=== PATIENT | female | born 1970 | race Caucasian/White ===

== ENCOUNTER 2020-08-19 09:31 | Emergency (ER) | payer SELFPAY ==
[~2020-08-19] VITALS: Ht 162.6 cm; Wt 70.3 kg
[2020-08-19 09:51] VITALS: BP 150/86
--- NOTE | 2020-08-19 10:00 | NUR ---
C/O COUGH X1 DAY ACCOMPANIED BY CHEST PAIN WHEN SHE COUGHS. PT REPORTS [employer] WORKERS HAVE COME UP COVID (+). PT WAITING OUT IN TENT
--- NOTE | 2020-08-19 11:50 | NUR ---
covid swab collected
--- NOTE | 2020-08-19 12:05 | NUR ---
Patient discharged with v/s stable. Written and verbal after care instructions given and explained. Patient alert, oriented and verbalized understanding of instructions. Ambulatory with steady gait. All questions addressed prior to discharge. ID band removed. Patient advised to follow up with PMD. Rx of motrin and prednisone given. Patient educated on indication of medication including possible reaction and side effects. Opportunity to ask questions provided and answered.
[2020-08-19 12:06] VITALS: BP 150/86
== END 2020-08-19 12:05 | disposition home or self-care (01) ==
LOC: MED 09:31
DX: R05 Cough (principal); Z20.828 Contact with and (suspected) exposure to other viral communicable diseases; R07.9 Chest pain, unspecified; J45.909 Unspecified asthma, uncomplicated; Z98.890 Other specified postprocedural states; Z88.8 Allergy status to other drugs, medicaments and biological substances
CPT/HCPCS: 99283; U0003

== ENCOUNTER 2020-09-18 08:33 | Emergency (ER) | payer OTHER, SELFPAY ==
[~2020-09-18] VITALS: Ht 162.6 cm; Wt 77.6 kg
[2020-09-18 09:05] VITALS: BP 126/91
[2020-09-18] MEDS ORDERED: DICYCLOMINE HCL LIQUID 20 MG, ALUMINUM HYD/MAG/SIMETHICONE 30 ML, LIDOCAINE VISCOUS 2% ... PO ONE ×3 (09:15)
[2020-09-18] MEDS ORDERED: ONDANSETRON 4 MG ODT PO ONE (09:15)
[2020-09-18] MEDS ORDERED: LIDOCAINE VISCOUS 2% 20 ML UDC ONE (09:30)
[2020-09-18] MEDS ORDERED: DICYCLOMINE HCL LIQUID 10 MG/5 ML UDC ONE (09:30)
[2020-09-18] MEDS ORDERED: ALUMINUM HYD/MAG/SIMETHICONE 30 ML UDC ONE (09:30)
[2020-09-18 12:56] LABS: CARBON DIOXIDE 27.3 mmol/L (21-32); POTASSIUM 4.3 mmol/L (3.5-5.1)
[2020-09-18 12:57] LABS: TOTAL BILIRUBIN 0.5 mg/dL (0.0-1.0)
[2020-09-18 13:05] LABS: HEMOGLOBIN 13.8 g/dL (12.0-16.0); RED BLOOD CELL COUNT(AUTO) 4.76 MIL/uL (4.20-5.40); WHITE BLOOD COUNT (AUTO) 8.4 K/uL (4.8-10.8)
[2020-09-18 13:06] LABS: HEMATOCRIT 40.5 % (36-48); MEAN CORPUSCULAR HEMOGLOBIN 29 pg (27-31); MEAN CORPUSCULAR HGB CONC 34 g/dL (33-37); MEAN CORPUSCULAR VOLUME 85.2 fL (80-94); PLATELET COUNT (AUTO) 305 K/uL (140-450); RED CELL DISTRIBUTION WIDTH 14.2 % (11.6-13.7)
[2020-09-18 13:07] LABS: BASOPHILS % (AUTO) 0.5 % (0.0-2.0); EOSINOPHILS # (AUTO) 0.2 K/uL (0-0.4); EOSINOPHILS % (AUTO) 2.8 % (0.0-4.0); LYMPHOCYTES % (AUTO) 35.9 % (20.5-51.1); MONOCYTES # (AUTO) 0.7 K/uL (0.8-1.0); MONOCYTES % (AUTO) 8.6 % (1.7-9.3); NEUTROPHILS # (AUTO) 4.4 K/uL (1.8-7.7); NEUTROPHILS % (AUTO) 52.2 % (42.2-75.2)
--- NOTE | 2020-09-18 13:34 | NUR ---
PT C/O PROGRESSIVELY WORSENING EPIGASTRIC PAIN FOR ONE WEEK. DENIES N/V/D, SOB, FEVER. REPORTS CHRONIC COUGH DUE TO ASTHMA AND POSIBLE EXPOSURE TO COVID AT WORK. PT TESTED COVID ON 08/19/2020 WITH POSITIVE RESULT.
--- NOTE | 2020-09-18 13:34 | NUR ---
Patient discharged with v/s stable. Written and verbal after care instructions given and explained. Patient alert, oriented and verbalized understanding of instructions. Ambulatory with steady gait. All questions addressed prior to discharge. ID band removed. Patient advised to follow up with PMD. Rx of Mylanta 200mg Pepcid 20mg given. Patient educated on indication of medication including possible reaction and side effects. Opportunity to ask questions provided and answered.
[2020-09-18 13:35] VITALS: BP 126/91
[2020-09-18 23:33] LABS: APPEARANCE,URINE CLOUDY (CLEAR); BILIRUBIN,URINE NEGATIVE (NEGATIVE); BLOOD, URINE 1+ (NEGATIVE); COLOR,URINE YELLOW (YELLOW); LEUKOCYTE ESTERASE ,URINE TRACE (NEGATIVE); NITRITE, URINE NEGATIVE (NEGATIVE); PH,URINE 5.5 (5.0-9.0); UGLUCOSE NEGATIVE (NEGATIVE)
[2020-09-19 00:06] LABS: RBC,URINE 0-5 /HPF (0-5); WBC,URINE 0-5 /HPF (0-5)
== END 2020-09-18 13:34 | disposition home or self-care (01) ==
LOC: MED 08:33
DX: K29.70 Gastritis, unspecified, without bleeding (principal); M54.6 Pain in thoracic spine; J45.909 Unspecified asthma, uncomplicated; Z88.8 Allergy status to other drugs, medicaments and biological substances
CPT/HCPCS: 36415; 71045; 76705; 80053; 81001; 83690; 84484; 85025; 93005; 99285; Q0162

== ENCOUNTER 2022-02-16 17:29 | Emergency (ER) | payer OTHER, SELFPAY ==
[~2022-02-16] VITALS: Ht 165.1 cm; Wt 74.8 kg
[2022-02-16 17:44] VITALS: BP 116/56
--- NOTE | 2022-02-16 17:45 | NUR ---
PT AMBULATED TO ER BED 10 WITH A STEADY GAIT FOR BEDSIDE TRIAGE.
--- NOTE | 2022-02-16 17:48 | NUR ---
52 Y/O FEMALE C/O LOW BACK PAIN 07/15 DESCRIBES SHARP AND ACHING CONSTANT X3DAYS S/P FALLING. DENIES HEAD INJURY. DENIES LOC. PT STATES SHE TOOK IBUPROFEN WITH SOME RELIEF. PMH: ASTHMA ALLERGIES: GUAIFENSIN
[2022-02-16] MEDS ORDERED: KETOROLAC 30 MG/ML VIAL IM ONE (19:20)
--- NOTE | 2022-02-16 19:24 | NUR ---
Apollo reddy in [facility] - 02/16/22 at 1924 by [email or web address] RECIEVED REPORT FROM GINA CHOPRA
--- NOTE | 2022-02-16 19:25 | NUR ---
RECIEVED REPORT FROM GINA CHOPRA
--- NOTE | 2022-02-16 19:26 | NUR ---
GAVE REPORT TO GINA DUNAWAY. TRANSFER OF CARE AT THIS TIME.
--- NOTE | 2022-02-16 19:37 | NUR ---
X-Ray at bedside.
--- NOTE | 2022-02-16 19:39 | NUR ---
PT TAKEN TO XRAY
--- NOTE | 2022-02-16 19:39 | NUR ---
Apollo reddy in [facility] - 02/16/22 at 1940 by [email or web address] PT TAKEN TO XRAY
[2022-02-16] MEDS ORDERED: IBUP-2218 PO (20:35)
[2022-02-16 21:25] VITALS: BP 116/56
--- NOTE | 2022-02-16 21:26 | NUR ---
Patient discharged with v/s stable. Written and verbal after care instructions given and explained. Patient alert, oriented and verbalized understanding of instructions. Ambulatory with steady gait. All questions addressed prior to discharge. ID band removed. Patient advised to follow up with PMD. Rx of IBUPROFEN given. Patient educated on indication of medication including possible reaction and side effects. Opportunity to ask questions provided and answered. VSS, A/OX4, AMBULATORY, UNLABORED BREATHING, AND CALM DEMEANOR.
== END 2022-02-16 21:26 | disposition home or self-care (01) ==
LOC: MED 17:29
DX: M54.50 Low back pain, unspecified (principal); J45.909 Unspecified asthma, uncomplicated; Z79.1 Long term (current) use of non-steroidal anti-inflammatories (NSAID); Z88.8 Allergy status to other drugs, medicaments and biological substances
CPT/HCPCS: 72110; 81025; 96372; 99283; J1885

== ENCOUNTER 2022-11-27 10:36 | Emergency (ER) | payer OTHER ==
[~2022-11-27] VITALS: Ht 162.6 cm; Wt 84.4 kg
[~2022-11-27 10:36] MED LIST: IBUP-2218 PO
[2022-11-27 10:59] VITALS: BP 119/72
[2022-11-27 11:44] LABS: BASOPHILS % (AUTO) 0.4 % (0.0-2.0); EOSINOPHILS # (AUTO) 0.3 K/uL (0-0.4); EOSINOPHILS % (AUTO) 3.6 % (0.0-4.0); HEMATOCRIT 39.1 % (36-48); HEMOGLOBIN 13.4 g/dL (12.0-16.0); LYMPHOCYTES # (AUTO) 3.3 K/uL (2.5-16.5); LYMPHOCYTES % (AUTO) 33.6 % (20.5-51.1); MEAN CORPUSCULAR HEMOGLOBIN 30 pg (27-31); MEAN CORPUSCULAR HGB CONC 34 g/dL (33-37); MEAN CORPUSCULAR VOLUME 87.1 fL (80-94); MONOCYTES # (AUTO) 0.9 K/uL (0.8-1.0); MONOCYTES % (AUTO) 9.3 % (1.7-9.3); NEUTROPHILS # (AUTO) 5.2 K/uL (1.8-7.7); NEUTROPHILS % (AUTO) 53.1 % (42.2-75.2); PLATELET COUNT (AUTO) 206 K/uL (140-450); RED BLOOD CELL COUNT(AUTO) 4.49 MIL/uL (4.20-5.40); RED CELL DISTRIBUTION WIDTH 13.2 % (11.6-13.7); WHITE BLOOD COUNT (AUTO) 9.8 K/uL (4.8-10.8)
[2022-11-27 12:21] LABS: ALBUMIN 4.2 g/dL (3.4-5.0); ANION GAP 12.3 (8-16); CARBON DIOXIDE 30.4 mmol/L (21-32); CREATININE 0.9 mg/dL (0.6-1.3); POTASSIUM 3.7 mmol/L (3.5-5.1); TOTAL BILIRUBIN 0.6 mg/dL (0.0-1.0)
--- NOTE | 2022-11-27 12:55 | NUR ---
INITAL CONTACT WITH PATIENT, COVERING FOR PRIMARY RN FOR LUNCH RELIEF. RECD A 52/F FROM [facility] FOR INC[facility]LES FOR C/O DIZZINESS WITH HEADACHE. PT REPORTS HX OF VERTIGO BUT UNRELIEVED WITH PRN MECLIZINE. SPEECH IS CLEAR, TALENT SPECIALIST EQUAL, AND AMBULATORY WITHOUT ANY ASSITANCE. ADVISED OF PLAN OF CARE. PT IS AGREEABLE.
--- NOTE | 2022-11-27 13:01 | NUR ---
REPORT TO PRIMARY RN - SHENA.
[2022-11-27] MEDS ORDERED: SCOP0.333 TP (14:19)
[2022-11-27] MEDS: SCOPOLAMINE 1.5 MG/72 HR PATCH TD SCH (14:41)
[2022-11-27 15:15] VITALS: BP 117/69
--- NOTE | 2022-11-27 15:15 | NUR ---
PT DC TO HOME WITH 2 RX AND VERBALIZED UNDERSTANDING OF INSTRUCTIONS. VSS/NAD. SCOPALOMINE PATCH PLACED AND PT EDUCATED NOT TO DRIVE . ALL BELONGINGS, TO INCLUDE PURSE, CELL PHONE AND WALLET SENT.
== END 2022-11-27 15:15 | disposition home or self-care (01) ==
LOC: MED 10:36
DX: H81.10 Benign paroxysmal vertigo, unspecified ear (principal); R11.0 Nausea; J45.909 Unspecified asthma, uncomplicated; Z79.899 Other long term (current) drug therapy; Z79.1 Long term (current) use of non-steroidal anti-inflammatories (NSAID); Z88.8 Allergy status to other drugs, medicaments and biological substances
CPT/HCPCS: 36415; 71045; 80053; 85025; 99284

== ENCOUNTER 2022-12-14 16:43 | Emergency (ER) | payer OTHER ==
[~2022-12-14] VITALS: Ht 165.1 cm; Wt 73.0 kg
[~2022-12-14 16:43] MED LIST changes: +SCOP0.333 TP
[2022-12-14 17:03] VITALS: BP 131/77
--- NOTE | 2022-12-14 18:04 | NUR ---
pt amb to bed
--- NOTE | 2022-12-14 18:10 | NUR ---
52YO FEMALE PT C/O INCREASED VERTIGO AND N/V/D-blood XLASTNIGHT. REPORTS SUDDEN ONSET W/ ABD SORENESS AND PRESSURED HEADACHE. DENIES RELIEF AFTER RX SCOPOLAMINE TD. DENIES CHEST PAIN, SOB OR CHANGE IN VISION. PT AAOX4, AMB W/ STEADY GAIT. HOB POSITIONED PER COMFORT HX: VERTIGO, ASTHMA, HLD NKDA
--- NOTE | 2022-12-14 19:15 | NUR ---
MD GAN AT BEDSIDE FOR EVALUATION
[2022-12-14] MEDS ORDERED: ONDANSETRON 4 MG/2 ML VIAL IVP ONE (19:25)
[2022-12-14] MEDS ORDERED: NACL 0.9% 1,000 ML IV ONE (19:25)
--- NOTE | 2022-12-14 19:26 | NUR ---
REPORT GIVEN TO RORO EID. TRANSFER OF CARE AT THIS TIME
[2022-12-14 19:58] LABS: BASOPHILS % (AUTO) 0.2 % (0.0-2.0); EOSINOPHILS # (AUTO) 0.1 K/uL (0-0.4); EOSINOPHILS % (AUTO) 0.4 % (0.0-4.0); HEMATOCRIT 42.6 % (36-48); HEMOGLOBIN 14.7 g/dL (12.0-16.0); LYMPHOCYTES # (AUTO) 1.2 K/uL (2.5-16.5); MEAN CORPUSCULAR HEMOGLOBIN 30 pg (27-31); MEAN CORPUSCULAR HGB CONC 35 g/dL (33-37); MONOCYTES # (AUTO) 0.6 K/uL (0.8-1.0); MONOCYTES % (AUTO) 4.5 % (1.7-9.3); NEUTROPHILS # (AUTO) 12.1 K/uL (1.8-7.7); NEUTROPHILS % (AUTO) 86.6 % (42.2-75.2); PLATELET COUNT (AUTO) 275 K/uL (140-450); RED BLOOD CELL COUNT(AUTO) 4.89 MIL/uL (4.20-5.40); RED CELL DISTRIBUTION WIDTH 13.2 % (11.6-13.7)
[2022-12-14 20:00] LABS: LYMPHOCYTES % (AUTO) 8.3 % (20.5-51.1)
--- NOTE | 2022-12-14 20:10 | NUR ---
PT IS A&OX4 SITTING UP RESTING IN BED. RESP EVEN AND UNLABORED. NS FLUIDS STARTED. 20G IV CATH PLACED L AC LABS OBTAINED AND SENT OFF. URINE SENT TO LAB. PT STATES SX STARTED TODAY. +VOMITING +DIARRHEA. HX OF VERTIGO. BED AT LOWEST LEVEL SIDE RAILS UP X2 NKDA VERTIGO
[2022-12-14 20:11] LABS: APPEARANCE,URINE CLEAR (CLEAR); BILIRUBIN,URINE NEGATIVE (NEGATIVE); BLOOD, URINE 1+ (NEGATIVE); COLOR,URINE YELLOW (YELLOW); LEUKOCYTE ESTERASE ,URINE NEGATIVE (NEGATIVE); NITRITE, URINE NEGATIVE (NEGATIVE); UGLUCOSE NEGATIVE (NEGATIVE)
[2022-12-14 20:30] LABS: ALBUMIN 4.3 g/dL (3.4-5.0); ANION GAP 13.9 (8-16); CARBON DIOXIDE 27.9 mmol/L (21-32); CREATININE 0.9 mg/dL (0.6-1.3); POTASSIUM 3.8 mmol/L (3.5-5.1); TOTAL BILIRUBIN 0.3 mg/dL (0.0-1.0)
[2022-12-14 20:36] LABS: TRICHOMONAS,URINE None Seen /HPF (None Seen); WBC,URINE 0-5 /HPF (0-5); YEAST,URINE None Seen /HPF (None Seen)
[2022-12-14] MEDS ORDERED: ACETAMINOPHEN EXTRA STRENGTH 500 MG TAB PO ONE (20:55)
[2022-12-14] MEDS ORDERED: ACET-10509 PO (22:44)
[2022-12-14] MEDS ORDERED: ONDA-188 SL (22:44)
[2022-12-14 22:57] VITALS: BP 131/77
--- NOTE | 2022-12-14 22:57 | NUR ---
Patient discharged with v/s stable. Written and verbal after care instructions given and explained. Patient alert, oriented and verbalized understanding of instructions. Ambulatory with steady gait. All questions addressed prior to discharge. ID band removed. Patient advised to follow up with PMD. Rx of TYLENOL EXTRA STRENGTH ZOFRAN given. Patient educated on indication of medication including possible reaction and side effects. Opportunity to ask questions provided and answered.
--- NOTE | 2022-12-14 23:05 | NUR ---
The patient's care was reviewed and supervised by Arlette Ritchie RN.
== END 2022-12-14 22:57 | disposition home or self-care (01) ==
LOC: MED 16:43
DX: R11.2 Nausea with vomiting, unspecified (principal); R19.7 Diarrhea, unspecified; R42 Dizziness and giddiness; J45.909 Unspecified asthma, uncomplicated; Z79.899 Other long term (current) drug therapy; Z98.890 Other specified postprocedural states
CPT/HCPCS: 36415; 70450; 80053; 81001; 83690; 85025; 96361; 96374; 99285; J2405; J7030

== ENCOUNTER 2023-01-31 10:33 | Emergency (ER) | payer OTHER ==
[~2023-01-31] VITALS: Ht 162.6 cm; Wt 74.8 kg
[~2023-01-31 10:33] MED LIST changes: +ACET-10509 PO; +ONDA-188 SL
[2023-01-31 10:47] VITALS: BP 121/63
--- NOTE | 2023-01-31 10:50 | NUR ---
URINE COLLECTED. PT AMBULATED TO [facility]
--- NOTE | 2023-01-31 11:54 | NUR ---
PA Mao evaluating patient at bedside.
[2023-01-31 12:40] LABS: BASOPHILS % (AUTO) 0.3 % (0.0-2.0); EOSINOPHILS # (AUTO) 0.2 K/uL (0-0.4); EOSINOPHILS % (AUTO) 1.3 % (0.0-4.0); HEMATOCRIT 37.2 % (36-48); HEMOGLOBIN 12.8 g/dL (12.0-16.0); LYMPHOCYTES # (AUTO) 1.9 K/uL (2.5-16.5); LYMPHOCYTES % (AUTO) 15.1 % (20.5-51.1); MEAN CORPUSCULAR HEMOGLOBIN 30 pg (27-31); MEAN CORPUSCULAR HGB CONC 35 g/dL (33-37); MEAN CORPUSCULAR VOLUME 85.7 fL (80-94); MONOCYTES # (AUTO) 0.8 K/uL (0.8-1.0); MONOCYTES % (AUTO) 6.1 % (1.7-9.3); NEUTROPHILS % (AUTO) 77.2 % (42.2-75.2); PLATELET COUNT (AUTO) 182 K/uL (140-450); RED BLOOD CELL COUNT(AUTO) 4.34 MIL/uL (4.20-5.40); RED CELL DISTRIBUTION WIDTH 13.7 % (11.6-13.7); WHITE BLOOD COUNT (AUTO) 12.9 K/uL (4.8-10.8)
[2023-01-31 12:43] LABS: APPEARANCE,URINE CLEAR (CLEAR); BILIRUBIN,URINE NEGATIVE (NEGATIVE); BLOOD, URINE TRACE-I (NEGATIVE); COLOR,URINE YELLOW (YELLOW); LEUKOCYTE ESTERASE ,URINE TRACE (NEGATIVE); NITRITE, URINE NEGATIVE (NEGATIVE); PH,URINE 6.5 (5.0-9.0); UGLUCOSE NEGATIVE (NEGATIVE)
--- NOTE | 2023-01-31 12:49 | NUR ---
Patient in bed 6 for c/o constipation since this morning. Patient said that she took valerian herbal tea for constipation, but it has not been helping the past few days. Patient had
[2023-01-31 12:51] LABS: ALBUMIN 3.7 g/dL (3.4-5.0); ANION GAP 12.1 (8-16); CREATININE 0.9 mg/dL (0.6-1.3); POTASSIUM 4.1 mmol/L (3.5-5.1); TOTAL BILIRUBIN 0.6 mg/dL (0.0-1.0)
[2023-01-31] MEDS ORDERED: DOCU283N RC (13:47)
[2023-01-31] MEDS ORDERED: NITR100C7 PO (13:47)
[2023-01-31 14:24] VITALS: BP 116/67
--- NOTE | 2023-01-31 14:24 | NUR ---
Patient discharged with v/s stable. Written and verbal after care instructions given. Patient alert, oriented and verbalized understanding of instructions. Ambulatory with steady gait. All questions addressed prior to discharge. ID band removed. Patient advised to follow up with PMD. Rx of MACROBID AND ENEMEEZ given. Opportunity to ask questions provided and answered.
== END 2023-01-31 14:25 | disposition home or self-care (01) ==
LOC: MED 10:33
DX: N39.0 Urinary tract infection, site not specified (principal); K62.5 Hemorrhage of anus and rectum; J45.909 Unspecified asthma, uncomplicated; E78.5 Hyperlipidemia, unspecified; F32.A Depression, unspecified; Z79.899 Other long term (current) drug therapy
CPT/HCPCS: 36415; 80053; 81001; 81025; 83690; 85025; 87086; 99284

== ENCOUNTER 2023-04-16 08:11 | Day surgery (SDC) | payer OTHER ==
[~2023-04-16] VITALS: Ht 165.1 cm; Wt 68.9 kg
[~2023-04-16 08:11] MED LIST changes: +DOCU283N RC; +NITR100C7 PO
[2023-04-16] MEDS ORDERED: LIDOCAINE 2% 100 MG/5 ML UJET TP ONE (09:09)
[2023-04-16] MEDS ORDERED: diphenhydrAMINE 50 MG/ML VIAL ONE (09:09)
[2023-04-16] MEDS ORDERED: fentaNYL citrate 0.05 MG/ML VIAL ONE (09:09)
[2023-04-16] MEDS ORDERED: MIDAZOLAM 5 MG/5 ML VIAL ONE (09:09)
[2023-04-16] MEDS ORDERED: SIMETHICONE 40 MG/0.6 ML ONE (09:47)
[2023-04-16] MEDS ORDERED: fentaNYL citrate 0.05 MG/ML VIAL IVP ONE (10:00)
[2023-04-16] MEDS ORDERED: diphenhydrAMINE 50 MG/ML VIAL IVP ONE (10:00)
[2023-04-16] MEDS ORDERED: MIDAZOLAM 5 MG/5 ML VIAL IV ONE (10:00)
== END 2023-04-16 10:32 | disposition home or self-care (01) ==
LOC: MDS 08:11 → MMU 08:13 → MDS 10:32
PROVIDERS: ATTEND Internal Medicine Gastroenterology
DX: Z12.11 Encounter for screening for malignant neoplasm of colon (principal); E78.5 Hyperlipidemia, unspecified; J45.909 Unspecified asthma, uncomplicated
CPT/HCPCS: 45378; J1200; J2250; J3010